=== PATIENT | female | born 1975 | race Caucasian/White ===

== ENCOUNTER 2019-04-09 18:10 | Emergency (ER) | payer MEDICAID ==
[2019-04-09] MEDS: CEFTRIAXONE 1 GM/50 ML (PMX) 50 ML IVPB (19:15)
[2019-04-09] MEDS: METHYLPREDNISOLONE 125 MG INJ IV (19:15)
[2019-04-09] MEDS: SOD CHLORIDE 0.9% 500 ML IV (19:15)
[2019-04-09] MEDS: ACETAMINOPHEN 325 MG TAB PO (20:01)
== END 2019-04-09 21:44 | disposition home or self-care (01) ==
LOC: FTE 18:10
DX: J02.0 Streptococcal pharyngitis (principal)
CPT/HCPCS: 87880; 96374; 96375; 99284-25